=== PATIENT | female | born 1945 | race Caucasian/White ===

== ENCOUNTER → 2018-02-06 | Day surgery (SDC) | payer MEDICARE, BC ==
[~2018-02-06] VITALS: Ht 157.5 cm; Wt 57.4 kg
[~2018-02-06] MED LIST: ACETAMINOPHEN 500 MG CPLT PO PRN; ACIDTAB4 PO; ATROPINE SULFATE 1% OPHT SOLN 2 ML BTL ONE; BALANCED SALT SOLN OPHT IRRIG 15 ML BTL ONE; CHLORHEXIDINE GLUCONATE 2 % 1 PACK (2 CLOTHS) TOPICAL PRN; CLIN150 PO; DEXAMETHASONE SOD PHOS 4 MG/ML VIAL IV ONE; DEXAMETHASONE SOD PHOS 4 MG/ML VIAL ONE; DO NOT ADM ANY ANTICOAGULANT DRUGS PRN; EPINEPHrine HCL (1:1000) 1 MG/ML VIAL ONE; HYDROmorphone HCL PF 2 MG/ML VIAL ONE; INSULIN HUMAN REGULAR 1,000 UNITS/10 ML VIAL SQ PRN; LACTATED RINGER'S 1000 ML IV PRN; LIDOCAINE HCL 1% PF 5 ML SYRINGE OTHER ONE; LORTA5 PO; METOPROLOL TARTRATE 25 MG TAB PO PRN; ONDANSETRON HCL 4 MG/2 ML VIAL IV ONE; PANT20 PO; POVIDONE IODINE 5% (ANTISEPSIS KIT) 4 APPLICATIONS EACH NARE PRN; PRED50 PO; PROPOFOL 200 MG/20 ML AMP IV ONE; SILV50T TOP; SODIUM CHLORID 0.9% 500 ML IV PRN; STERILE WATER FOR INJECTION 20 ML VIAL ONE; TOBRAMYCIN 0.3%/DEXAMETHASONE 0.1% OPHT SUSP 5 ML BTL ONE; TOBRAMYCIN/DEXAMETHASONE OPTH OINT 3.5 GM TUBE ONE; TRIAMCINOLONE ACETONIDE/PF 40 MG/ML OPTH VIAL ONE; ceFAZolin INJ 1,000 MG VIAL ONE; oxyCODONE/ACETAMINOPHEN 5 MG/325 MG TAB PO PRN
[2018-02-06] MEDS: ATROPINE SULFATE 1% OPHT SOLN 5 ML BTL LEFT EYE SCH ×4 (11:40→12:07)
[2018-02-06] MEDS: TROPICAMIDE 1% OPHT SOLN 15 ML BTL LEFT EYE SCH ×4 (11:40→12:07)
[2018-02-06] MEDS: PHENYLEPHRINE HCL 2.5% OPTH SOLN 2 ML BTL LEFT EYE SCH ×4 (11:40→12:07)
[2018-02-06] MEDS: CYCLOPENTOLATE HCL 1% OPHT SOLN 2 ML BTL LEFT EYE SCH ×4 (11:40→12:07)
--- NOTE | 2018-02-06 14:22 | MP ---
cc: Irma Dow MD DATE OF OPERATION: 02/06/2018 PREOPERATIVE DIAGNOSIS: Stage IV macular hole, left eye. POSTOPERATIVE DIAGNOSIS: Stage IV macular hole, left eye. PROCEDURE PERFORMED: Trans pars plana vitrectomy with ICG guided internal limiting membrane membranectomy, gas fluid exchange, left eye. SURGEON: Dr. Irma Dow. ANESTHESIA: General laryngeal mask anesthesia. INDICATIONS: Ms. Rubi is a 72-year-old woman who noticed decreased central vision in her left eye several months ago. She underwent cataract surgery in December and hoped to follow with repair of the macular hole. The risks and benefits of surgery were discussed with the patient and informed consent was obtained. No guarantee was made as to visual outcome. PROCEDURE: The patient was brought to [facility] operating room #1 and placed on the operating table. Appropriate anesthesia monitoring devices were applied. She was placed under general anesthesia. A lid speculum was placed. The microscope was brought around and adjusted. At this point, an appropriate timeout was called with the surgical team agreeing to the surgical procedure and surgical site. Using the Cornelio 23-gauge vitrectomy system, the trocar cannulas were placed with a bevelled entrance through the conjunctiva and sclera at 3.5 mm posterior to the limbus. The first was placed at approximately 3 o'clock and verified to be in the posterior chamber. An infusion cannula was affixed to it and turned on. Two additional trocar cannulas were placed in a similar fashion at 10 and 2 o'clock. A small amount of Kenalog was injected into the eye to help visualize the vitreous and the eye was entered with the endoilluminator light pipe and vitrectomy cutter. Using a flat contact lens, the core vitrectomy was carried out. ICG was allowed to settle on the macula, after which the Rhett membrane scraper helped to remove membrane from around the macular hole. The flat lens was exchanged for the Biome wide angle viewing system and a peripheral vitrectomy was carried out. 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 The fundus was inspected with the indirect ophthalmoscope and scleral depression and no retinal breaks were found. Next, using a soft tipped linear extrusion needle an air-fluid exchange was performed and then the air was exchanged for a 15% mixture of C3F8 gas. The cannulas were removed one by one with tamponade, the site with a cotton swab and diathermy to the overlying conjunctival wound. This left the eye with good pressure and no visible air leaks. Atropine drops were placed on the cornea. Subconjunctival injections of Ancef 125 mg in 0.5 mL and Decadron 2 mg in 0.5 mL were given at separate sites. The lid speculum was removed. TobraDex ointment were placed on the cornea after the patient was undraped. The left eye was then patched and shielded. The patient had the laryngeal mask removed and was returned to recovery in good condition, lying on her right side. When awake and alert, she will be asked to assume face down positioning. Irma Dow MD SMD/TL , 01:59 PM , 02:21 PM
[2018-02-06 15:24] VITALS: BP 159/91; PULSE 87; RESP 20; TEMP 99; O2SAT 95
--- NOTE | 2018-02-07 10:32 | EKG ---
Date Performed: 02/06/2018 Time Performed: 10:39:54 PTAGE: 72 years EKG: Sinus rhythm BORDERLINE ECG PREVIOUS TRACING : 05/05/2015 13.30 Since the previous tracing, no significant change noted DOCTOR: Toni Toussaint Interpretating Date/Time 02/07/2018 10:30:47
== END | disposition home or self-care (01) ==
LOC: HSDC 10:00
PROVIDERS: ATTEND Ophthalmology
DX: H35.342 Macular cyst, hole, or pseudohole, left eye (principal); Z01.810 Encounter for preprocedural cardiovascular examination
CPT/HCPCS: 00145; 67042; 93005; J0171; J0690; J1100; J1170; J2405; J3300; J7120